=== PATIENT | male | born 1945 | race Caucasian/White ===

== ENCOUNTER → 2018-12-17 | Outpatient (CLI) | payer MEDICARE, OTHER ==
--- NOTE | 2018-12-17 09:24 | KCIC ---
Indication: Common bile duct dilation. Recent pancreatitis. TECHNIQUE: 3-D MRCP of the abdomen without IV contrast with MIP reformats. COMPARISON: CT from 12/13/2018 and abdomen ultrasound from same day FINDINGS: Heart is normal in size. No pericardial or pleural effusion. Liver is normal in morphology with diffuse hepatic steatosis. Scattered high intensity T2 6/low intensity T1 signal lesions are seen in the liver, the largest in segment 6 measuring 1.8 x 1.4 cm most likely simple cysts. No intra hepatic biliary duct dilation. Mild saccular dilation of the common duct measuring 1.1 cm. No internal filling defects in the CBD to suggest CBD stones. No gallstones or pericholecystic fluid. Spleen is unenlarged and shows no abnormal T2 signal. Main pancreatic duct is nondilated. No pancreatic or peripancreatic inflammatory changes. Adrenal glands demonstrate no nodularity. No hydronephrosis. IMPRESSION: No CBD dilation. Mild saccular dilation of the common hepatic duct, nonspecific. No choledocholithiasis. Most likely scattered simple cysts in the liver. Hepatic steatosis. Electronically signed by: Joseph Caba DO (12/17/2018 9:21 AM) [facility]
== END | disposition home or self-care (01) ==
LOC: KCIC MRI 07:47
PROVIDERS: ATTEND Family Medicine
DX: K76.0 Fatty (change of) liver, not elsewhere classified (principal); K83.8 Other specified diseases of biliary tract; N18.3 Chronic kidney disease, stage 3 (moderate)
CPT/HCPCS: 74181